=== PATIENT | male | born 1995 | race African-American/Black ===

== ENCOUNTER 2017-10-21 10:20 | Emergency (ER) | payer MEDICAID ==
[~2017-10-21] VITALS: Ht 193 cm; Wt 96.0 kg
[2017-10-21 12:40] VITALS: BP 132/76
== END 2017-10-21 14:15 | disposition left against medical advice (07) ==
LOC: ER 12:26
DX: R05 Cough (principal); J02.9 Acute pharyngitis, unspecified; R51 Headache; F17.200 Nicotine dependence, unspecified, uncomplicated
CPT/HCPCS: 87070; 87430; 87804; 99284